=== PATIENT | male | born 1965 | race Caucasian/White ===

== ENCOUNTER 2020-07-12 00:55 | Outpatient (CLI) | payer BC ==
--- NOTE | 2020-07-12 09:50 | XRAY Report ---
PROCEDURE: Abdomen 1 View X-Ray INDICATIONS: HX OF RENAL STONES/SURVEILLANCE TECHNIQUE: 1 view of the abdomen were acquired. COMPARISON: None FINDINGS: Surgical changes and devices: None. Bowel: No pneumoperitoneum. The bowel gas pattern is normal. Soft tissues: No masses; visualized solid organ contours appear normal in size. No suspicious abdom inal calcifications. Bones: No suspicious bony abnormalities. IMPRESSION: No definite renal stone by plain from radiograph. If there is continued clinical concern for renal st one, consider CT KUB for further evaluation. Reviewed by: Jessie Carvalho MD, PhD on 07/12/2020 9:49 AM [facility] Approved by: Jessie Carvalho MD, PhD on 07/12/2020 9:49 AM [facility] Station ID: [id number]
== END 2020-07-12 00:56 | disposition home or self-care (01) ==
LOC: DI 00:55
PROVIDERS: ATTEND Urology
DX: N20.0 Calculus of kidney (principal)
CPT/HCPCS: 74018

== ENCOUNTER 2020-07-14 07:55 | Outpatient (CLI) | payer BC ==
[2020-07-14 08:36] LABS: BASOPHILS # (AUTO) 0.1 10^3/uL (0.0-0.1); EOSINOPHILS # (AUTO) 0.2 10^3/uL (0.0-0.7); EOSINOPHILS % (AUTO) 2.2 %; HGB - HEMOGLOBIN 14.6 g/dL (14.0-18.0); LYMPHOCYTES # (AUTO) 2.6 10^3/uL (1.5-3.5); LYMPHOCYTES % (AUTO) 33.9 %; MEAN CORPUSCULAR HEMOGLOBIN 30.5 pg (27.0-31.0); MEAN CORPUSCULAR HGB CONC 33.9 g/dL (32.0-36.0); MEAN CORPUSCULAR VOLUME 90.2 fL (80.0-94.0); MEAN PLATELET VOLUME 10.9 fL (7.4-11.4); MONOCYTES # (AUTO) 0.8 10^3/uL (0.0-1.0); MONOCYTES % (AUTO) 10.8 %; NEUTROPHILS % (AUTO) 51.6 %; PLT - PLATELET COUNT 172 10^3/uL (130-450); RED BLOOD COUNT 4.78 10^6/uL (4.70-6.10); RED CELL DISTRIBUTION WIDTH 14.2 % (12.0-15.0); WHITE BLOOD COUNT 7.7 x10^3/uL (4.8-10.8)
[2020-07-14 08:42] LABS: ALBUMIN/GLOBULIN RATIO 1.4 (1.0-2.2); ALKALINE PHOSPHATASE 70 IU/L (42-121); ALT ALANINE AMINOTRANSFERASE 49 IU/L (10-60); AST ASPARTATE AMINOTRANSFERASE 29 IU/L (10-42); BILIRUBIN,TOTAL 0.9 mg/dL (0.2-1.0); BUN - BLOOD UREA NITROGEN 21 mg/dL (6-20); CARBON DIOXIDE - CO2 25 mmol/L (21-32); CHLORIDE 103 mmol/L (101-111); CHOL/HDL RATIO 4.8 (<5.0); CHOLESTEROL 184 mg/dL; CREATININE 0.9 mg/dL (0.6-1.2); GLUCOSE 105 mg/dL (70-100); HDL CHOLESTEROL 38 mg/dL; LDL CHOLESTEROL,CALCULATED 112 mg/dL; LDL/HDL RATIO 2.9 (<3.6); SODIUM 139 mmol/L (135-145); TOTAL PROTEIN 6.8 g/dL (6.7-8.2); VLDL CHOLESTEROL 34 mg/dL
[2020-07-14 10:46] LABS: FERRITIN 105.8 ng/mL (23.9-336.2)
== END 2020-07-14 07:56 | disposition home or self-care (01) ==
LOC: LAB 07:55
PROVIDERS: ATTEND Family Medicine
DX: Z00.00 Encounter for general adult medical examination without abnormal findings (principal); Z12.5 Encounter for screening for malignant neoplasm of prostate; Z79.899 Other long term (current) drug therapy; K76.0 Fatty (change of) liver, not elsewhere classified
CPT/HCPCS: 36415; 80053; 80061; 82728; 83721; 84153; 84443; 85025

== ENCOUNTER 2021-08-28 11:56 | Outpatient (CLI) | payer BC ==
[2021-08-28 12:41] LABS: BASOPHILS # (AUTO) 0.1 10^3/uL (0.0-0.1); BASOPHILS % (AUTO) 1.1 %; EOSINOPHILS # (AUTO) 0.1 10^3/uL (0.0-0.7); EOSINOPHILS % (AUTO) 1.9 %; HGB - HEMOGLOBIN 15.4 g/dL (14.0-18.0); LYMPHOCYTES # (AUTO) 1.9 10^3/uL (1.5-3.5); LYMPHOCYTES % (AUTO) 26.8 %; MEAN CORPUSCULAR HEMOGLOBIN 30.1 pg (27.0-31.0); MEAN CORPUSCULAR HGB CONC 34.2 g/dL (32.0-36.0); MEAN CORPUSCULAR VOLUME 88.1 fL (80.0-94.0); MEAN PLATELET VOLUME 10.7 fL (7.4-11.4); MONOCYTES # (AUTO) 0.7 10^3/uL (0.0-1.0); NEUTROPHILS # (AUTO) 4.4 10^3/uL (1.5-6.6); NEUTROPHILS % (AUTO) 60.9 %; PLT - PLATELET COUNT 192 10^3/uL (130-450); RED BLOOD COUNT 5.11 10^6/uL (4.70-6.10); RED CELL DISTRIBUTION WIDTH 14.2 % (12.0-15.0); WHITE BLOOD COUNT 7.3 x10^3/uL (4.8-10.8)
[2021-08-28 13:03] LABS: ALBUMIN 4.2 g/dL (3.2-5.5); ALBUMIN/GLOBULIN RATIO 1.6 (1.0-2.2); ALKALINE PHOSPHATASE 74 IU/L (42-121); ALT ALANINE AMINOTRANSFERASE 55 IU/L (10-60); AST ASPARTATE AMINOTRANSFERASE 32 IU/L (10-42); BILIRUBIN,TOTAL 1.4 mg/dL (0.2-1.0); BUN - BLOOD UREA NITROGEN 16 mg/dL (6-20); CALCIUM 9.1 mg/dL (8.5-10.3); CARBON DIOXIDE - CO2 26 mmol/L (21-32); CHLORIDE 102 mmol/L (101-111); CHOL/HDL RATIO 5.3 (<5.0); CHOLESTEROL 203 mg/dL; CREATININE 0.8 mg/dL (0.6-1.2); GFR - MDRD 100 (>89); GLUCOSE 100 mg/dL (70-100); HDL CHOLESTEROL 38 mg/dL; LDL CHOLESTEROL,CALCULATED 115 mg/dL; POTASSIUM 3.9 mmol/L (3.5-5.0); SODIUM 137 mmol/L (135-145); TOTAL PROTEIN 6.8 g/dL (6.7-8.2); TRIGLYCERIDES 252 mg/dL; VLDL CHOLESTEROL 50 mg/dL
[2021-08-28 13:12] LABS: ESTIMATED AVERAGE GLUCOSE 117 mg/dL (70-100); HEMOGLOBIN A1c% 5.7 % (4.27-6.07)
[2021-08-28 13:14] LABS: THYROID STIMULATING HORMONE 1.73 uIU/mL (0.34-5.60)
[2021-08-28 13:20] LABS: FERRITIN 158.1 ng/mL (23.9-336.2)
== END 2021-08-28 11:57 | disposition home or self-care (01) ==
LOC: LAB 11:56
PROVIDERS: ATTEND Family Medicine
DX: Z00.00 Encounter for general adult medical examination without abnormal findings (principal); K76.0 Fatty (change of) liver, not elsewhere classified; R73.01 Impaired fasting glucose; Z12.5 Encounter for screening for malignant neoplasm of prostate
CPT/HCPCS: 36415; 80053; 80061; 82728; 83036; 83721; 84153; 84443; 85025

== ENCOUNTER 2022-10-26 11:44 | Outpatient (CLI) | payer BC ==
[2022-10-26 11:59] LABS: BASOPHILS # (AUTO) 0.1 10^3/uL (0.0-0.1); BASOPHILS % (AUTO) 0.9 %; EOSINOPHILS # (AUTO) 0.1 10^3/uL (0.0-0.7); EOSINOPHILS % (AUTO) 1.3 %; HCT - HEMATOCRIT 46.3 % (42.0-52.0); LYMPHOCYTES # (AUTO) 1.8 10^3/uL (1.5-3.5); LYMPHOCYTES % (AUTO) 24.1 %; MEAN CORPUSCULAR HEMOGLOBIN 28.9 pg (27.0-31.0); MEAN CORPUSCULAR HGB CONC 32.4 g/dL (32.0-36.0); MEAN CORPUSCULAR VOLUME 89.2 fL (80.0-94.0); MEAN PLATELET VOLUME 10.6 fL (7.4-11.4); MONOCYTES # (AUTO) 0.6 10^3/uL (0.0-1.0); MONOCYTES % (AUTO) 8.3 %; NEUTROPHILS # (AUTO) 4.9 10^3/uL (1.5-6.6); NEUTROPHILS % (AUTO) 65.1 %; PLT - PLATELET COUNT 191 10^3/uL (130-450); RED BLOOD COUNT 5.19 10^6/uL (4.70-6.10); RED CELL DISTRIBUTION WIDTH 13.7 % (12.0-15.0); WHITE BLOOD COUNT 7.5 x10^3/uL (4.8-10.8)
[2022-10-26 12:26] LABS: ALBUMIN 4.2 g/dL (3.2-5.5); ALBUMIN/GLOBULIN RATIO 1.4 (1.0-2.2); ALKALINE PHOSPHATASE 77 IU/L (42-121); ALT ALANINE AMINOTRANSFERASE 54 IU/L (10-60); AST ASPARTATE AMINOTRANSFERASE 28 IU/L (10-42); BILIRUBIN,TOTAL 0.9 mg/dL (0.2-1.0); BUN - BLOOD UREA NITROGEN 18 mg/dL (6-20); CARBON DIOXIDE - CO2 24 mmol/L (21-32); CHLORIDE 106 mmol/L (101-111); CHOL/HDL RATIO 5.2 (<5.0); CHOLESTEROL 202 mg/dL; CREATININE 0.9 mg/dL (0.6-1.2); GFR - MDRD 86 (>89); GLUCOSE 105 mg/dL (70-100); HDL CHOLESTEROL 39 mg/dL; LDL CHOLESTEROL,CALCULATED 114 mg/dL; LDL/HDL RATIO 2.9 (<3.6); SODIUM 142 mmol/L (135-145); TOTAL PROTEIN 7.1 g/dL (6.7-8.2); TRIGLYCERIDES 244 mg/dL; VLDL CHOLESTEROL 49 mg/dL
[2022-10-26 12:38] LABS: THYROID STIMULATING HORMONE 1.96 uIU/mL (0.34-5.60)
[2022-10-26 12:44] LABS: FERRITIN 107.4 ng/mL (23.9-336.2)
[2022-10-26 12:48] LABS: ESTIMATED AVERAGE GLUCOSE 114 mg/dL (70-100); HEMOGLOBIN A1c% 5.6 % (4.27-6.07)
== END 2022-10-26 11:45 | disposition home or self-care (01) ==
LOC: LAB 11:44
PROVIDERS: ATTEND Family Medicine
DX: Z00.00 Encounter for general adult medical examination without abnormal findings (principal); K76.0 Fatty (change of) liver, not elsewhere classified; R73.01 Impaired fasting glucose
CPT/HCPCS: 36415; 80053; 80061; 82728; 83036; 83721; 84153; 84443; 85025

== ENCOUNTER 2023-06-16 12:27 | Outpatient (CLI) | payer BC ==
[2023-06-16 13:03] LABS: ALT ALANINE AMINOTRANSFERASE 36 IU/L (10-60); AST ASPARTATE AMINOTRANSFERASE 20 IU/L (10-42); CHOLESTEROL 216 mg/dL; TRIGLYCERIDES 326 mg/dL (48-352); VLDL CHOLESTEROL 65 mg/dL
[2023-06-16 23:53] LABS: CHOL/HDL RATIO 5.1 (<5.0); HDL CHOLESTEROL 42 mg/dL; LDL CHOLESTEROL,CALCULATED 109 mg/dL; LDL/HDL RATIO 2.6 (<3.6)
== END 2023-06-16 12:28 | disposition home or self-care (01) ==
LOC: LAB 12:27
PROVIDERS: ATTEND Family Medicine
DX: E78.2 Mixed hyperlipidemia (principal); Z79.899 Other long term (current) drug therapy
CPT/HCPCS: 36415; 80061; 83721; 84450; 84460

== ENCOUNTER 2023-11-11 08:00 | Outpatient (CLI) | payer OTHER ==
[2023-11-11 16:37] LABS: BILIRUBIN,URINE NEGATIVE (NEGATIVE); GLUCOSE, URINE (UA) NEGATIVE (NEGATIVE); KETONES,URINE (UA) NEGATIVE (NEGATIVE); LEUKOCYTE ESTERASE, URINE NEGATIVE (NEGATIVE); NITRITE,URINE NEGATIVE (NEGATIVE); OCCULT BLOOD,URINE MODERATE (NEGATIVE); PH,URINE 7.5 PH (5.0-7.5); PROTEIN,URINE NEGATIVE (NEGATIVE); UROBILINOGEN,URINE 0.2 (NORMAL) E.U./dL (NORMAL)
[2023-11-11 16:41] LABS: CLARITY,URINE CLEAR (CLEAR)
[2023-11-11 16:49] LABS: BACTERIA,URINE Rare /HPF (None Seen); SQUAMOUS EPITHELIAL CELL,UR NONE SEEN (<= Few); WBC,URINE 0-3 /HPF (0-3)
== END 2023-11-11 23:59 | disposition home or self-care (01) ==
LOC: LAB 08:00
PROVIDERS: ATTEND Urology
DX: R35.0 Frequency of micturition (principal)
CPT/HCPCS: 81001; 87086

== ENCOUNTER 2024-02-08 08:20 | Outpatient (CLI) | payer OTHER ==
--- NOTE | 2024-02-08 10:09 | CT Report ---
PROCEDURE: Abdomen/Pelvis WO INDICATIONS: HEMATURIA TECHNIQUE: A CT scan of the abdomen and pelvis was performed without the use of intravenous contrast. Images we re recorded and evaluated at appropriate window settings. Reformats: coronal and sagittal. For radiat ion dose reduction, the following was used: automated exposure control, adjustment of mA and/or kV ac cording to patient size. COMPARISON: None. FINDINGS: Image quality: Diagnostic. Lower chest: Unremarkable. Liver: No contour-deforming mass. Gallbladder: No radiopaque stones or wall thickening. Biliary tree: No intrahepatic or extrahepatic dilation, accounting for age. Spleen: No splenomegaly. Pancreas: No pancreatic ductal dilation. Adrenals: No adrenal nodule. Kidneys and ureters: There is a 1.1 x 0.7 cm calcification centrally in the left renal pelvis with Ho unsfield units of about 700. There is no hydronephrosis. Minor inflammation of the renal pelvis is se en. There is a punctate retained nonobstructing left lower pole intrarenal calcification. Kidneys are otherwise normal. No hydroureter or ureteral calcifications. Stomach, bowel and peritoneum: Stomach and small bowel are normal. Normal appendix. Normal colon. No pathologic free fluid. Lymph nodes: No central or retroperitoneal adenopathy. Vessels: No infrarenal aortic aneurysm. Reproductive organs: Normal size prostate gland. Tiny left-sided distal, dependent scrotalith. Bladder: Bladder wall thickness is normal, accounting for underdistention. No calcified bladder stone s. Pelvic lymph nodes: No adenopathy by size criteria. Bones: No aggressive osseous abnormality. Other: Small right-sided fat-containing inguinal hernia. IMPRESSION: 1.1 cm nonobstructing central left renal pelvis calcification may cause chronic hematuria and/or inte rmittent obstruction. Punctate retained left lower pole intrarenal calculus. Incidental note of tiny left-sided scrotal calcification, typically not symptomatic. Reviewed by: Deanne Simmons MD on 02/08/2024 10:08 AM PDT Approved by: Deanne Simmons MD on 02/08/2024 10:08 AM PDT Station ID: [id number]
== END 2024-02-08 08:21 | disposition home or self-care (01) ==
LOC: DI 08:20
PROVIDERS: ATTEND Family Medicine
DX: R31.29 Other microscopic hematuria (principal); N20.0 Calculus of kidney

== ENCOUNTER 2024-03-20 08:34 | Day surgery (SDC) | payer OTHER ==
[~2024-03-20 08:34] MED LIST: ceFAZolin 2 GM VIAL ONE
[2024-03-20] MEDS: LACTATED RINGERS 1,000 ML IV ONE (09:07)
--- NOTE | 2024-03-20 09:52 | ANESTHESIA ---
Pre-Anesthesia VS, & Labs - Diagnosis LEFT KIDNEY STONE - Procedure CYSTOSCOPY LEFT URETEROSCOPY LASER Vital Signs: Temp Pulse Resp BP Pulse Ox O2 Flow Rate 36.4 C L 61 18 149/80 H 97 03/20/24 08:59 03/20/24 08:59 03/20/24 08:59 03/20/24 08:59 03/20/24 08:59 Height: 5 ft 11 in Weight (kg): 116.4 kg Body Mass Index: 35.8 BMI Classification: Obese - NPO >8 hours Home Medications and Allergies Home Medications: Ambulatory Orders Chanca Yoselyn 2 tab PO BID 03/13/24 Lactobacillus Combination No.4 [Probiotic] 1 each PO DAILY 03/13/24 Metoprolol Tartrate [Lopressor] 25 mg PO DAILY 03/13/24 Montelukast [Singulair] 10 mg PO DAILY 03/13/24 Multivitamin 1 each PO DAILY 03/13/24 [employer]-3 Fatty Acids [[employer]-3] 2 cap PO DAILY 03/13/24 Rosuvastatin Calcium [Crestor] 40 mg PO DAILY 03/13/24 Venlafaxine [Effexor] 3 tab PO DAILY 03/13/24 Chanca Roosevelt 2 tab PO BID 03/13/24 Lactobacillus Combination No.4 [Probiotic] 1 each PO DAILY 03/13/24 Metoprolol Tartrate [Lopressor] 25 mg PO DAILY 03/13/24 Montelukast [Singulair] 10 mg PO DAILY 03/13/24 Multivitamin 1 each PO DAILY 03/13/24 [employer]-3 Fatty Acids [[employer]-3] 2 cap PO DAILY 03/13/24 Rosuvastatin Calcium [Crestor] 40 mg PO DAILY 03/13/24 Venlafaxine [Effexor] 3 tab PO DAILY 03/13/24 Allergies/Adverse Reactions: Allergies Allergy/AdvReac Type Severity Reaction Status Date / Time No Known Drug Allergies Allergy Verified 03/13/24 11:33 Anes History & Medical History - Anesthetic History Anesthesia Complications: reports: No previous complications Family history of Anesthesia Complications: Denies Family history of Malignant Hyperthermia: Denies - Medical History Cardiovascular: reports: High cholesterol, Arrhythmia (HX OF PVCS. SINUS RHYTHM ON EKG CURRENTLY), Other (SHORTNESS OF BREATH WITH MILD EXERTION) Pulmonary: reports: Sleep apnea Gastrointestinal: reports: GERD, Colon polyps Urinary: reports: Kidney stones Neuro: reports: None Musculoskeletal: reports: Chronic back pain, Other Endocrine/Autoimmune: reports: Other (PREDIABETIC PER PRIMARY PHYSICIAN PER PT) Blood Disorders: reports: None Skin: reports: None Smoking Status: Never smoker Psychosocial: reports: No issues indicated History of Cancer?: No - Surgical History General: reports: Colonoscopy, EGD, Other Urologic: reports: Ureterolithotomy (stones) Results - EKG Results EKG Comparison: Reviewed EKG, Normal EKG, Other (HX OF PVCS) Exam General: Alert, Oriented x3, Cooperative, No acute distress Dental: WNL Mouth Openin Fingerbreadth Neck Mobility: Normal Mallampati classification: II Thyromental Distance: 4-6 cm Mental/Cognitive Status: Alert/Oriented X3, Normal for patient Cognitive Status: Within normal limits Plan Anesthesia Type: General Consent for Procedure(s) Verified and Reviewed: Yes Code Status: Attempt Resuscitation ASA classification: 3-Severe systemic disease Is this case an emergency?: No
[2024-03-20] MEDS ORDERED: LIDOCAINE 2% URO-JET 5 ML SYRINGE UR ONE (10:01)
[2024-03-20] MEDS ORDERED: iohexoL-240 10 ML VIAL IVP ONE (10:02)
[2024-03-20] MEDS ORDERED: PROPOFOL 200 MG/20 ML VIAL IVP ONE (10:08)
[2024-03-20] MEDS ORDERED: fentaNYL 100 MCG/2 ML VIAL ONE (10:08)
[2024-03-20] MEDS ORDERED: LIDOCAINE-PF 2% 10 ML AMP SUBQ ONE (10:08)
[2024-03-20] MEDS ORDERED: MIDAZOLAM 2 MG/2 ML VIAL ONE (10:08)
[2024-03-20] MEDS ORDERED: ROCURONIUM 50 MG/5 ML VIAL ONE (10:09)
[2024-03-20] MEDS: LIDOCAINE 2% URO-JET 5 ML SYRINGE UR ONE (10:17)
[2024-03-20] MEDS ORDERED: DEXAMETHASONE 4 MG/ML VIAL ONE (10:33)
[2024-03-20] MEDS ORDERED: ONDANSETRON 4 MG/2 ML VIAL ONE (10:33)
[2024-03-20] MEDS ORDERED: MORPHINE 2 MG/ML CARPUJECT IVP PRN (10:34)
[2024-03-20] MEDS ORDERED: HYDROmorphone 0.5 MG/0.5 ML SYRINGE IVP PRN (10:34)
[2024-03-20] MEDS ORDERED: ATROPINE ABBOJECT 1 MG/10 ML SYRINGE IVP PRN (10:34)
[2024-03-20] MEDS ORDERED: fentaNYL 100 MCG/2 ML VIAL IVP PRN (10:34)
[2024-03-20] MEDS ORDERED: NALOXONE 0.4 MG/ML VIAL IVP PRN (10:34)
[2024-03-20] MEDS ORDERED: METOCLOPRAMIDE 10 MG/2 ML VIAL IVP PRN (10:34)
[2024-03-20] MEDS ORDERED: ePHEDrine 50 MG/ML VIAL IVP PRN (10:34)
[2024-03-20] MEDS ORDERED: ONDANSETRON 4 MG/2 ML VIAL IVP PRN (10:34)
[2024-03-20] MEDS ORDERED: KETOROLAC 30 MG/ML VIAL ONE (10:42)
[2024-03-20] MEDS ORDERED: SUGAMMADEX 200 MG/2 ML VIAL IVP ONE (10:43)
[2024-03-20] MEDS ORDERED: HYDROcod/ACETAM 5/325 MG TABLET PO PRN (10:51)
[2024-03-20] MEDS: LACTATED RINGERS 200 ML IV ONE (10:55)
--- NOTE | 2024-03-20 10:58 | Discharge Plan ---
Discharge Plan Problem Reviewed?: Yes Disposition: Home, Self Care Condition: Good Prescriptions: Docusate Sodium 100Mg Capsule [Colace 100Mg Capsule] 100 mg PO DAILY #14 cap Tamsulosin [Flomax] 0.4 mg PO DAILY #14 cap Phenazopyridine [Pyridium] 200 mg PO TID PRN 3 Days #18 tablet PRN Reason: As Needed Per Provider Orders oxyCODONE [Roxicodone] 5 mg PO Q4H PRN #10 tablet PRN Reason: Pain Diet: Regular Activity Restrictions: Additional Comments (as instructed) Shower Restrictions: No Driving Restrictions: No Instruction Topics: Stents Ureteral Additional Instructions or Follow Up instructions: You will be contacted for follow-up and likely repeating the procedure on April 03 No Smoking: If you smoke, Please STOP! Call for help. Follow-up with: Chencho Orona MD [Provider Admit Priv/Credential] -
[2024-03-20] MEDS ORDERED: LACTATED RINGERS 1,000 ML IV SCH (11:00)
--- NOTE | 2024-03-20 11:02 | OPERATIVE REPORT ---
Operative Report - General Procedure Date: 03/20/24 Planned Procedure: Cystoscopy, left ureteroscopy, laser lithotripsy, stent Pre-Op Diagnosis: Left kidney stone Procedure Performed: Cystoscopy, left ureteral dilation, left ureteroscopy, stent Post Op Diagnosis: Left kidney stone, UPJ stenosis - Procedure Note Primary Surgeon: Yeyo Anesthesia Provider: WALKER Hill Anesthesia Technique: General LMA Pathology: none Estimated Blood Loss (mL): 0 Findings: Narrow left ureter, dilated to 12f up to mid ureter Flexible ureteroscope unable to pass left UPJ Stone 1cm and softly radioopaque Complications: Unable to reach renal pelvis, stent placed - Other Other Information/Narrative: After informed consent was obtained the patient was brought to the OR and laid in the supine position. The patient was anesthetized per anesthesia protocols and prepped draped in usual sterile fashion in the dorsolithotomy position. A formal timeout was performed reconfirming the patient procedure and laterality. A 22 [place] cystoscope was advanced easily into urinary bladder. Bladder inspected and full and there were no masses, lesions or other concerns. A sensor wire was placed up the left ureteral orifice up into the kidney. A 8-10 dilator was then placed to gently dilate the left ureter distally. A second wire was then placed up into the kidney. A 12 [place] inner portion of a ur eteral access sheath was able to advance up into the mid ureter and then met some resistance. We placed then a 12/14 [place] ureteral access sheath attempting to dilate more but curling up the mid ureter. We placed a flexible ureteroscope up the sheath into the mid ureter where we could see that there was a narrow ureter but we were able to traverse it with a flexible ureteroscope. At the left UPJ we could see there was a narrowing there. The stone could be seen on fluoroscopy it was about a centimeter in size and softly radiopaque. We could not place the flexible ureteroscope up into the renal pelvis. We elected that point time to place a stent and come back later to allow for passive dilation rather than risk perforation of his proximal ureter. A 6 [place] 26 cm stent was placed with good curling noted in the kidney and good curling noted in the bladder under fluoroscopic and cystoscopic guidance. His bladder was emptied and a Uro-Jet was placed. This concluded the procedure and the patient tolerated the procedure well. He will come back in at least 2 weeks time for repeat procedure
[2024-03-20] MEDS ORDERED: PHENAZOPYRIDINE 100 MG TABLET PO ONE (11:31)
[2024-03-20] MEDS: HYDROcod/ACETAM 5/325 MG TABLET ONE (11:33)
[2024-03-20] MEDS: PHENAZOPYRIDINE 100 MG TABLET PO ONE (11:37)
[2024-03-20 13:00] VITALS: BP 153/67; O2SAT 96
--- NOTE | 2024-03-20 19:02 | XRAY Report ---
PROCEDURE: OR C-Arm Procedure INDICATIONS: STENT PLACEMENT FLUORO TIME: 000.3 TECHNIQUE: 2 C-arm images are provided COMPARISON: None. FINDINGS: Fluoroscopic imaging utilized during placement of a left ureteral stent. IMPRESSION: Fluoroscopic imaging utilized during placement of a left ureteral stent. Reviewed by: Leonard Mckoy MD on 03/20/2024 7:00 PM PDT Approved by: Leonard Mckoy MD on 03/20/2024 7:00 PM PDT Station ID: [id number]
== END 2024-03-20 08:35 | disposition home or self-care (01) ==
LOC: SDS 08:34
PROVIDERS: ATTEND Urology
DX: N20.0 Calculus of kidney (principal); Q62.11 Congenital occlusion of ureteropelvic junction; E66.9 Obesity, unspecified; Z68.35 Body mass index [BMI] 35.0-35.9, adult; G47.30 Sleep apnea, unspecified
CPT/HCPCS: 52332; A9270; C1758; C2617; J7120; Q9966

== ENCOUNTER 2024-04-03 07:48 | Day surgery (SDC) | payer OTHER ==
[2024-04-03] MEDS: LACTATED RINGERS 1,000 ML IV ONE ×2 (08:00→10:21)
--- NOTE | 2024-04-03 09:08 | ANESTHESIA ---
Pre-Anesthesia VS, & Labs - Diagnosis kidney stones - Procedure left urteroscopy, cysto, laser lithotripsy Vital Signs: Temp Pulse Resp BP Pulse Ox O2 Flow Rate 36.5 C 68 13 141/73 H 98 04/03/24 08:05 04/03/24 08:05 04/03/24 08:05 04/03/24 08:05 04/03/24 08:05 Height: 5 ft 11 in Weight (kg): 116.7 kg Body Mass Index: 35.9 BMI Classification: Obese - NPO >8 hours Home Medications and Allergies Chanca Yoselyn 2 tab PO BID 03/13/24 Lactobacillus Combination No.4 [Probiotic] 1 each PO DAILY 03/13/24 Metoprolol Tartrate [Lopressor] 25 mg PO DAILY 03/13/24 Montelukast [Singulair] 10 mg PO DAILY 03/13/24 Multivitamin 1 each PO DAILY 03/13/24 [place]-3 Fatty Acids [[place]-3] 2 cap PO DAILY 03/13/24 Rosuvastatin Calcium [Crestor] 40 mg PO DAILY 03/13/24 Venlafaxine [Effexor] 3 tab PO DAILY 03/13/24 Allergies/Adverse Reactions: Allergies Allergy/AdvReac Type Severity Reaction Status Date / Time No Known Drug Allergies Allergy Verified 03/20/24 10:43 Anes History & Medical History - Anesthetic History Anesthesia Complications: reports: No previous complications - Medical History Cardiovascular: reports: High cholesterol, Arrhythmia, Other Pulmonary: reports: Sleep apnea Gastrointestinal: reports: GERD, Colon polyps Urinary: reports: Kidney stones Neuro: reports: None Musculoskeletal: reports: Chronic back pain, Other Endocrine/Autoimmune: reports: Other Blood Disorders: reports: None Skin: reports: None Smoking Status: Never smoker - Surgical History General: reports: Colonoscopy, EGD, Other Urologic: reports: Ureterolithotomy (stones) Exam General: Alert, Oriented x3 Dental: WNL Mouth Opening: Greater than 4 Fingerbreadths Neck Mobility: Normal Mallampati classification: II Thyromental Distance: greater than 6 cm Respiratory: Lungs clear Cardiovascular: Regular rate Plan Anesthesia Type: General Consent for Procedure(s) Verified and Reviewed: Yes Code Status: Attempt Resuscitation ASA classification: 2-Mild systemic disease Is this case an emergency?: No
[2024-04-03] MEDS ORDERED: ONDANSETRON 4 MG/2 ML VIAL IVP PRN ×2 (09:12→10:20)
[2024-04-03] MEDS ORDERED: LIDOCAINE 2% URO-JET 5 ML SYRINGE UR ONE (09:12)
[2024-04-03] MEDS ORDERED: HYDROmorphone 0.5 MG/0.5 ML SYRINGE IVP PRN (09:12)
[2024-04-03] MEDS ORDERED: NALOXONE 0.4 MG/ML VIAL IVP PRN (09:12)
[2024-04-03] MEDS ORDERED: ePHEDrine 50 MG/ML VIAL IVP PRN (09:12)
[2024-04-03] MEDS ORDERED: ATROPINE ABBOJECT 1 MG/10 ML SYRINGE IVP PRN (09:12)
[2024-04-03] MEDS ORDERED: METOCLOPRAMIDE 10 MG/2 ML VIAL IVP PRN (09:12)
[2024-04-03] MEDS ORDERED: fentaNYL 100 MCG/2 ML VIAL IVP PRN (09:12)
[2024-04-03] MEDS ORDERED: MORPHINE 2 MG/ML CARPUJECT IVP PRN (09:12)
[2024-04-03] MEDS ORDERED: DEXAMETHASONE 4 MG/ML VIAL ONE (09:15)
[2024-04-03] MEDS ORDERED: LIDOCAINE-PF 2% 10 ML AMP SUBQ ONE (09:15)
[2024-04-03] MEDS ORDERED: PROPOFOL 200 MG/20 ML VIAL IVP ONE (09:15)
[2024-04-03] MEDS ORDERED: ROCURONIUM 50 MG/5 ML VIAL ONE (09:15)
[2024-04-03] MEDS: LIDOCAINE 2% URO-JET 5 ML SYRINGE UR ONE (09:56)
[2024-04-03] MEDS ORDERED: LACTATED RINGERS 1,000 ML IV SCH (10:00)
[2024-04-03] MEDS ORDERED: KETOROLAC 30 MG/ML VIAL ONE (10:01)
[2024-04-03] MEDS ORDERED: SUGAMMADEX 200 MG/2 ML VIAL IVP ONE (10:07)
[2024-04-03] MEDS ORDERED: HYDROcod/ACETAM 5/325 MG TABLET PO PRN (10:20)
--- NOTE | 2024-04-03 10:27 | Discharge Plan ---
Discharge Plan Problem Reviewed?: Yes Disposition: Home, Self Care Condition: Good Prescriptions: Docusate Sodium 100Mg Capsule [Colace 100Mg Capsule] 100 mg PO BID #14 cap oxyCODONE [Roxicodone] 5 mg PO Q4H PRN #10 tablet PRN Reason: Pain Senna [Senokot] 8.6 mg PO DAILY #7 tablet Activity Restrictions: Additional Comments (as instructed) Shower Restrictions: No Driving Restrictions: No Instruction Topics: Stents Ureteral Additional Instructions or Follow Up instructions: In the morning on , April 06 please remove your ureteral stent by pulling on the string until a long white tube about a foot long comes out of the penis completely. Do this with one strong steady motion. It is normal for some blood and some urine to come out so I would recommend doing this in the shower You will be contacted for follow-up with Dr. Orona in roughly 4 months time No Smoking: If you smoke, Please STOP! Call for help. Follow-up with: Chencho Orona MD [Provider Admit Priv/Credential] -
--- NOTE | 2024-04-03 10:30 | OPERATIVE REPORT ---
Operative Report - General Procedure Date: 04/03/24 Planned Procedure: Cystoscopy, left ureteroscopy, laser lithotripsy, stent exchange, possible endopyelotomy Pre-Op Diagnosis: Left kidney stone, UPJ narrowing Procedure Performed: Cystoscopy, left ureteroscopy, laser lithotripsy, stent exchange Post Op Diagnosis: Left kidney stone, UPJ narrowing - Procedure Note Primary Surgeon: Yeyo Anesthesia Provider: WALKER Li Anesthesia Technique: General LMA Pathology: left kidney stone Estimated Blood Loss (mL): 0 Findings: 1cm left UPJ stone dusted Narrow UPJ, could accommodate scope Complications: none - Other Other Information/Narrative: After informed consent was obtained the patient was brought to the OR and laid the supine position. The patient was anesthetized per anesthesia protocols and prepped draped in usual sterile fashion. A formal timeout was performed to reconfirm the patient, procedure and laterality. A 22 [place] cystoscope was advanced easily into the urinary bladder. His bladder was inspected and normal excepting a left ureteral stent emanating from his left ureteral orifice. There was some mild edema around the stent. The stent was grasped and brought to urethral meatus. A sensor wire was placed through it up into the kidney. We could see there was a weakly radiopaque stone up in the kidney consistent with his known stone. A second sensor wire was placed up into the kidney and then a 12 x 14 38 cm ureteral access sheath was placed up into the proximal ureter. A flexible ureteroscope was advanced up this sheath into the proximal ureter. We are then able to traverse the UPJ though it was narrow. Immediately could see a crystalline yellow 1 cm stone. Using a 200 m laser fiber at a power of 1.0 and a rate of 8 we dusted the stone to small fragments and dust. A automobile sales representative sample was grasped and removed via basket and sent for analysis The ureter was cleared via direct visualization. A 6 [place] 26 cm stent was placed with good curling noted in the kidney and good curling noted in the bladder. The bladder was emptied and Uro-Jet was placed. The stent was left on a string and a Tegaderm was applied to the penis. This concluded the procedure the patient tolerated procedure well. He will remove the stent in 3 days time and follow-up in [address] Orona
[2024-04-03 11:54] VITALS: BP 143/71; O2SAT 97
--- NOTE | 2024-04-03 12:26 | ANESTHESIA POST OP EVALUATION ---
Anesthesia Post Eval - Post Anesthesia Eval Vitals: Last Vital Signs Temp 36.4 C L 04/03/24 11:00 Pulse 78 04/03/24 11:50 Resp 16 04/03/24 11:50 BP 143/71 H 04/03/24 11:50 Pulse Ox 97 04/03/24 11:50 O2 Flow Rate 98 04/03/24 08:05 CV Function Including HR & BP: Stable Pain Control: Satisfactory Nausea & Vomiting: Negative Mental Status: Baseline Respiratory Status: Airway Patent Hydration Status: Satisfactory Anesthesia Complications: None
--- NOTE | 2024-04-03 19:44 | XRAY Report ---
PROCEDURE: OR C-Arm Procedure INDICATIONS: STENT EXCHANGE FLUORO TIME: 000.2 TECHNIQUE: Intraoperative fluoroscopy for left nephroureteral stent exchange COMPARISON: None. FINDINGS: 4 spot images demonstrate pigtail stent, stent with wire present, wire alone, and subsequent uncoiled stent to the left. IMPRESSION: Intraoperative fluoroscopy for left nephroureteral stent exchange. Reviewed by: Deanne Simmons MD on 04/03/2024 7:43 PM PDT Approved by: Deanne Simmons MD on 04/03/2024 7:43 PM PDT Station ID: [id number]
== END 2024-04-03 07:49 | disposition home or self-care (01) ==
LOC: SDS 07:48
PROVIDERS: ATTEND Urology
PROC: 0T778DZ Dilation of Left Ureter with Intraluminal Device, Via Natural or Artificial Opening Endoscopic (ICD-10-PCS; 2024-04-03)
PROC: 0TC48ZZ Extirpation of Matter from Left Kidney Pelvis, Via Natural or Artificial Opening Endoscopic (ICD-10-PCS; principal; 2024-04-03 09:30)
DX: N20.0 Calculus of kidney (principal); N13.5 Crossing vessel and stricture of ureter without hydronephrosis; E66.9 Obesity, unspecified; Z68.35 Body mass index [BMI] 35.0-35.9, adult
CPT/HCPCS: 52356; 82365; C1758; C2617; J7120

== ENCOUNTER 2024-06-02 10:24 | Outpatient (CLI) | payer OTHER ==
[2024-06-02 10:46] LABS: CHOL/HDL RATIO 4.1 (<5.0); CHOLESTEROL 183 mg/dL; HDL CHOLESTEROL 45 mg/dL; LDL CHOLESTEROL,CALCULATED 93 mg/dL; LDL/HDL RATIO 2.1 (<3.6); TRIGLYCERIDES 226 mg/dL; VLDL CHOLESTEROL 45 mg/dL
== END 2024-06-02 10:25 | disposition home or self-care (01) ==
LOC: LAB 10:24
PROVIDERS: ATTEND Family Medicine
DX: E78.2 Mixed hyperlipidemia (principal)
CPT/HCPCS: 36415; 80061; 83721